=== PATIENT | female | born 1960 | race American Indian/Alaskan Native ===

== ENCOUNTER 2017-02-18 14:07 | Inpatient (IN) | payer MEDICARE ==
[2017-02-18 15:03] LABS: Basophils % (Auto) 0.9 % (0.0-1.8); Eosinophils % (Auto) 2.3 % (0.0-4.3); Mean Corpuscular HGB Conc 27 % (30-34); Platelet Count 705 K/mm3 (140-440); Red Blood Count 3.12 M/mm3 (3.65-5.03); White Blood Count 10.8 K/mm3 (4.5-11.0)
[2017-02-18 15:08] LABS: Anion Gap 18 mmol/L; BUN/Creatinine Ratio 18.57; Blood Urea Nitrogen 13 mg/dL (7-17); Calcium 8.6 mg/dL (8.4-10.2); Carbon Dioxide 22 mmol/L (22-30); Glucose 93 mg/dL (65-100); Potassium 3.5 mmol/L (3.6-5.0); Sodium 136 mmol/L (137-145)
[2017-02-18 15:09] LABS: Mean Corpuscular Hemoglobin 15 pg (28-32); Mean Corpuscular Volume 55 fl (79-97); Red Cell Distribution Width 21.3 % (13.2-15.2)
[2017-02-18 15:12] LABS: Hematocrit 17.1 % (30.3-42.9); Hemoglobin 4.7 gm/dl (10.1-14.3)
[2017-02-18] MEDS ORDERED: NACL 0.9% 500 ML 500 ML IV ONE (15:49)
[2017-02-18] MEDS ORDERED: PROTONIX IV ONE (15:55)
--- NOTE | 2017-02-18 15:57 | History and Physical Report ---
History of Present Illness Chief complaint: I feel weak History of present illness: 57 YO Female with HTN, Asthma, COPD, Diverticulosis, Anemia presents to ED for evaluation. Pt states that she has experienced multiple episodes of dark stools , lightheadedness, weakness for the past 1 month with worsening symptoms over the past week. Pt has had 8 blood transfusions in the past, with the most recent being 2 years ago. Pt denies fever, chills, CP, Palpitations, loose stools, hematemesis, unintentional weight loss, night sweats. Past History Past Medical History: anemia, COPD, hypertension Past Surgical History: Other (tubal ligation, colectomy) Social history: single. denies: smoking, alcohol abuse, prescription drug abuse Family history: no significant family history, other (reviewed) Medications and Allergies Allergies Allergy/AdvReac Type Severity Reaction Status Date / Time Iodinated Contrast Media - Allergy Unknown Verified 02/18/17 19:33 IV Dye Penicillins Allergy Unknown Verified 02/11/16 01:43 Home Medications Medication Instructions Recorded Confirmed Last Taken Type ALBUTEROL Inhaler [ProAir HFA 2 puff IH QID PRN #1 inha 02/14/16 02/18/17 Unknown Rx Inhaler] Hydrochlorothiazide [HCTZ] 25 mg PO QDAY #30 tablet 02/14/16 02/18/17 Unknown Rx Budesoni/Formotero 160-4.5(Nf) 2 puff IH BID 02/18/17 02/18/17 Unknown History [Symbicort 160-4.5 (Nf)] Review of Systems All systems: negative Constitutional: fatigue, weakness Gastrointestinal: melena Exam - Constitutional Vitals: Temp Pulse Resp BP Pulse Ox 98.2 F 100 H 20 128/71 100 02/18/17 14:19 02/18/17 14:19 02/18/17 14:19 02/18/17 14:19 02/18/17 14:19 General appearance: Present: no acute distress, well-nourished - EENT Eyes: Present: PERRL ENT: hearing intact, clear oral mucosa - Neck Neck: Present: supple, normal ROM - Respiratory Respiratory effort: normal Respiratory: bilateral: CTA - Cardiovascular Heart Sounds: Present: S1 & S2. Absent: rub, click - Extremities Extremities: pulses symmetrical, No edema Peripheral Pulses: within normal limits - Abdominal General gastrointestinal: Present: soft, non-tender, non-distended, normal bowel sounds Female genitourinary: Present: normal - Integumentary Integumentary: Present: clear, warm, dry - Musculoskeletal Musculoskeletal: gait normal, strength equal bilaterally - Psychiatric Psychiatric: appropriate mood/affect, intact judgment & insight - Neurologic Neurologic: CNII-XII intact, moves all extremities Results - Labs CBC & Chem 7: 02/18/17 14:37 02/19/17 04:00 Labs: Abnormal lab results 02/18/17 02/18/17 Range/Units 14:37 14:37 RBC 3.12 L (3.65-5.03) M/mm3 Hgb 4.7 L* (10.1-14.3) gm/dl Hct 17.1 L* (30.3-42.9) % MCV 55 L (79-97) fl MCH 15 L (28-32) pg MCHC 27 L (30-34) % RDW 21.3 H (13.2-15.2) % Plt Count 705 H (140-440) K/mm3 [place] % (Auto) 10.0 H (0.0-7.3) % [place] # 1.1 H (0.0-0.8) K/mm3 Sodium 136 L (137-145) mmol/L Potassium 3.5 L (3.6-5.0) mmol/L Assessment and Plan - Patient Problems (1) Chronic lower GI bleeding Current Visit: Yes Status: Acute Plan to address problem: Secondary to blood loss anemia: Massive transfusion protocol: Transfuse PRBC, FFP, No platelet transfusion due to reactive thrombocytosis, IV ppi, supportive care, The high probability of a clinically significant, sudden or life threatening deterioration of the [Hematologic, cardiac, gi] system(s) required my full and direct attention, intervention and personal management. The aggregate critical care time was [65] minutes. This time is in addition to time spent performing reported procedures but includes the following: [x] Data Review and interpretation [x] Patient assessment and monitoring of vital signs [x] Documentation [x] Medication orders and management (2) HTN (hypertension) Current Visit: Yes Status: Acute Qualifiers: Hypertension type: H Plan to address problem: monitor bp q shift, supportive care (3) Diverticulosis Current Visit: Yes Status: Chronic Qualifiers: Diverticulosis site: diverticulosis of large intestine Diverticulosis bleeding: diverticulosis with bleeding Qualified Code(s): K57.31 - Diverticulosis of large intestine without perforation or abscess with bleeding Plan to address problem: supportive care, GI consulted (4) Symptomatic anemia Current Visit: Yes Status: Acute Plan to address problem: PRBC transfusion, supportive care, iron therapy, (5) DVT prophylaxis Current Visit: Yes Status: Acute
--- NOTE | 2017-02-18 16:06 | Emergency Department Report ---
ED General Adult HPI - General Chief complaint: Dizziness Stated complaint: DIZZINESS Time Seen by Provider: 02/18/17 15:54 Source: patient, family Mode of arrival: Ambulatory Limitations: No Limitations - History of Present Illness Initial comments: The patient has had similar such admissions in [place]. She's been here for an year. I don't think she's had much in the way of follow-up. She's not had a recent check of her hemoglobin. She states that she sometimes sees blood in her stools last time 2 days ago. She has not been vomiting any blood or dark material. Apparently she has had a previous partial colectomy for diverticulosis. She is a poor historian. She has had "8 transfusions" in the past. Patient reported syncopal episode of some sort. She has had this in the past associated with anemia. She did not hurt herself. She does complain of shortness of breath which she had been reconciling with her asthma although she has not been wheezing. It appears that the patient has fair amount of denial and the lack of primary care for her chronic condition. In any case she has been chronically weak and has had dyspnea on exertion. She has not been recently seen by a physician. -: week(s), month(s), year(s) Consistency: intermittent Improves with: none Worsens with: other (exertion) Associated Symptoms: shortness of breath, syncope, weakness Treatments Prior to Arrival: none - Related Data Previous Rx's Medication Instructions Recorded Last Taken Type ALBUTEROL Inhaler [ProAir HFA 2 puff IH QID PRN #1 inha 02/14/16 Unknown Rx Inhaler] Budesoni/Formotero 160-4.5(Nf) 2 puff IH BID #1 inha 02/14/16 Unknown Rx [Symbicort 160-4.5 (Nf)] Ferrous Sulfate [Feosol 325 MG tab] 325 mg PO TID #90 tablet 02/14/16 Unknown Rx Hydrochlorothiazide [HCTZ] 25 mg PO QDAY #30 tablet 02/14/16 Unknown Rx Metoprolol [Lopressor TAB] 25 mg PO BID #60 tablet 02/14/16 Unknown Rx Montelukast [Singulair] 10 mg PO QHS #30 tablet 02/14/16 Unknown Rx amLODIPine [Norvasc] 10 mg PO QDAY #30 tablet 02/14/16 Unknown Rx predniSONE [Deltasone] 20 mg PO QDAY #20 tab 02/14/16 Unknown Rx Allergies Allergy/AdvReac Type Severity Reaction Status Date / Time Penicillins Allergy Unknown Verified 02/11/16 01:43 ED Review of Systems ROS: Stated complaint: DIZZINESS Other details as noted in HPI Constitutional: weakness. denies: chills, fever Eyes: denies: eye pain, eye discharge, vision change ENT: denies: ear pain, throat pain Respiratory: shortness of breath. denies: cough, wheezing Cardiovascular: denies: chest pain, palpitations Endocrine: no symptoms reported Gastrointestinal: hematochezia. denies: abdominal pain, nausea, diarrhea Genitourinary: denies: urgency, dysuria, discharge Musculoskeletal: denies: back pain, joint swelling, arthralgia Skin: denies: rash, lesions Neurological: denies: headache, weakness, paresthesias Psychiatric: denies: anxiety, depression Hematological/Lymphatic: denies: easy bleeding, easy bruising ED Past Medical Hx - Past Medical History Previous Medical History?: Yes Hx Hypertension: Yes Hx Congestive Heart Failure: No Hx Diabetes: No Hx Asthma: Yes Hx COPD: Yes Additional medical history: DIVERTICULITIS, PNEUMONIA, SYNCOPE, ANEMIA - Surgical History Past Surgical History?: Yes Additional Surgical History: GI SURGERY, TUBLA LIGATION - Social History Smoking Status: Never Smoker Substance Use Type: Alcohol, Prescribed - Medications Home Medications: Home Medications Medication Instructions Recorded Confirmed Last Taken Type ALBUTEROL Inhaler [ProAir HFA 2 puff IH QID PRN #1 inha 02/14/16 Unknown Rx Inhaler] Budesoni/Formotero 160-4.5(Nf) 2 puff IH BID #1 inha 02/14/16 Unknown Rx [Symbicort 160-4.5 (Nf)] Ferrous Sulfate [Feosol 325 MG tab] 325 mg PO TID #90 tablet 02/14/16 Unknown Rx Hydrochlorothiazide [HCTZ] 25 mg PO QDAY #30 tablet 02/14/16 Unknown Rx Metoprolol [Lopressor TAB] 25 mg PO BID #60 tablet 02/14/16 Unknown Rx Montelukast [Singulair] 10 mg PO QHS #30 tablet 02/14/16 Unknown Rx amLODIPine [Norvasc] 10 mg PO QDAY #30 tablet 02/14/16 Unknown Rx predniSONE [Deltasone] 20 mg PO QDAY #20 tab 02/14/16 Unknown Rx ED Physical Exam - General Limitations: No Limitations General appearance: alert, in no apparent distress - Head Head exam: Present: atraumatic, normocephalic - Eye Eye exam: Present: normal appearance, PERRL, EOMI. Absent: scleral icterus - ENT ENT exam: Present: mucous membranes moist - Neck Neck exam: Present: normal inspection. Absent: tenderness, meningismus - Respiratory Respiratory exam: Present: normal lung sounds bilaterally. Absent: respiratory distress - Cardiovascular Cardiovascular Exam: Present: regular rate, normal rhythm. Absent: systolic murmur, diastolic murmur, rubs, gallop - GI/Abdominal GI/Abdominal exam: Present: soft, normal bowel sounds. Absent: distended, tenderness, guarding, rebound, rigid - Extremities Exam Extremities exam: Present: normal inspection, full ROM. Absent: tenderness, calf tenderness - Back Exam Back exam: Present: normal inspection - Neurological Exam Neurological exam: Present: alert, oriented X3, CN II-XII intact. Absent: reflexes normal - Psychiatric Psychiatric exam: Present: normal affect, normal mood - Skin Skin exam: Present: warm, dry, intact, normal color. Absent: rash ED Course Vital Signs 02/18/17 14:19 Temperature 98.2 F Pulse Rate 100 H Respiratory 20 Rate Blood Pressure 128/71 O2 Sat by Pulse 100 Oximetry - Reevaluation(s) Reevaluation #1: Emergency Transfusion ordered. Protonix given. Patient referred to Dr. Springer of the hospitalist service for further care and evaluation. 02/18/17 16:08 02/18/17 16:09 ED Medical Decision Making - Lab Data Result diagrams: 02/18/17 14:37 02/18/17 14:37 Laboratory Results - last 24 hr 02/18/17 02/18/17 14:37 14:37 WBC 10.8 RBC 3.12 L Hgb 4.7 L* Hct 17.1 L* MCV 55 L MCH 15 L MCHC 27 L RDW 21.3 H Plt Count 705 H Lymph % (Auto) 21.8 [place] % (Auto) 10.0 H Eos % (Auto) 2.3 Baso % (Auto) 0.9 Lymph # 2.3 [place] # 1.1 H Eos # 0.2 Baso # 0.1 Seg Neutrophils % 65.0 Seg Neutrophils # 7.0 Sodium 136 L Potassium 3.5 L Chloride 100.0 Carbon Dioxide 22 Anion Gap 18 BUN 13 Creatinine 0.7 Estimated GFR > 60 BUN/Creatinine Ratio 18.57 Glucose 93 Calcium 8.6 Troponin T < 0.010 Critical Care Time: Yes Critical care time in (mins) excluding proc time.: 35 Critical care attestation.: If time is entered above; I have spent that time in minutes in the direct care of this critically ill patient, excluding procedure time. ED Disposition Clinical Impression: Symptomatic anemia, Chronic lower GI bleeding Syncope Qualifiers: Syncope type: unspecified Qualified Code(s): R55 - Syncope and collapse Diverticulosis Qualifiers: Diverticulosis site: diverticulosis of large intestine Diverticulosis bleeding : diverticulosis with bleeding Qualified Code(s): K57.31 - Diverticulosis of large intestine without perforation or abscess with bleeding Disposition: OP ADMITTED IP TO THIS HOSP Is pt being admited?: Yes Does the pt Need Aspirin: No (contraindicated secondary to bleeding) Condition: Stable Instructions: Syncope (ED) Referrals: PRIMARY CARE, [Primary Care Provider] - 3-5 Days Time of Disposition: 16:11
[2017-02-18 16:17] LABS: Bilirubin,Urine NEG (Negative); Blood,Urine NEG (Negative); Ketones,Urine NEG (Negative); Leukocyte Esterase,Urine MOD (Negative); Mucus,Urine 2+ /HPF; Nitrite,Urine NEG (Negative); Protein,Urine <15 mg/dL mg/dL (Negative); Urobilinogen,Urine < 2.0 mg/dL (<2.0)
--- NOTE | 2017-02-18 17:14 | Admit Criteria Form ---
Admission Criteria Documentation: HEMATOLOGY GRG Clinical Indications for Admission to Inpatient Care (Place 'X' for any and all applicable criteria): Hospital admission is needed for appropriate care of the patient because of ANY ONE of the following: [ X]I. Severe anemia indicated by ANY ONE of the following (1)(2) [ ]a) Altered mental status [X ]b) Syncope [ ]c) Other findings suggesting inadequate perfusion [ ]d) Chest pain [ ]e) Exertional dyspnea [ ]f) Treatment with transfusion or volume replacement is ineffective at resolving ANY ONE of the following [A]: [ ]i) Tachycardia for age [ ]ii) Orthostatic vital sign changes as indicated by ANY ONE of the following (3) [ ]1) Fall in SBP of 20 mm Hg or more 1 to 3 minutes after patient sits or stands from recumbent position [ ]2) Fall in DBP of 10 mm Hg or more 1 to 3 minutes after patient sits or stands from recumbent position [ ]II. High-risk febrile neutropenia [B] as indicated by ANY ONE of the following(4)(5) [ ]a) Hemodynamic instability [ ]b) Hypoxemia [ ]c) Tachypnea [ ]d) Altered mental status [ ]e) New onset abdominal pain [ ]f) New onset vomiting or diarrhea [ ]g) Pneumonia [ ]h) Profound neutropenia [C] anticipated to extend for more than 7 days [ ]i) Oral or gastrointestinal mucositis that interferes with swallowing or causes severe diarrhea [ ]j) Evidence of significant focal infection (eg, cellulitis, central line or catheter infection, perirectal abscess) [ ]k) Leukemia or lymphoma induction therapy [ ]l) Bone marrow transplant patient [ ]m) Renal insufficiency (eg, GFR of less than 30 mL/min/1.73m2 (0.5 mL/sec/1.73m2) [ ]n) Severe liver dysfunction (transaminase levels greater than 5 times normal) [ ]o) Platelet count less than 50,000/mm3 (50 x109/L)(6) [ ]p) [employer] Association for Supportive Care in Cancer (MASCC) Risk Index score of < 21 [D] [ ]III. High-risk low platelet count as indicated by ANY ONE of the following(8) (9) [ ]a) Severe or life-threatening bleeding (eg, intracranial, major gastrointestinal, or extensive mucosal bleeding), with any reduced platelet count [ ]b) Platelet count less than 20,000/mm3 (20 x109/L) with any active bleeding [ ]c) Platelet count less than 10,000/mm3 (10 x109/L) with minor purpura or petechiae [ ]d) Platelet count less than 5000/mm3 (5 x109/L) [ ]e) Low platelet count with hemolytic anemia [ ]IV.Active hemolysis with high-risk findings, including ANY ONE of the following(2)(10)(11) [ ]a) Hematocrit less than 25% (0.25) [ ]b) Rapidly progressing anemia [ ]c) Thrombocytopenia(12)(13) [ ]d) Evidence of thrombosis or new renal insufficiency [ ]V. Bleeding disorder with high-risk features (eg, hemophilia, coagulopathy) as indicated by ANY ONE of the following (2)(14)(15) [ ]a) Central nervous system bleeding [ ]b) Retroperitoneal bleeding [ ]c) Retropharyngeal bleeding [ ]d) Gastrointestinal bleeding (22) [ ]e) Purpura [ ]f) Disseminated intravascular coagulation(23) [ ]g) Major trauma [ ]h) Deep laceration [ ]i) Head trauma [ ]j) Any trauma with internal hematoma (eg, retroperitoneal, ocular) [ ]k) Failed outpatient management [ ]. Severe over-anticoagulation or high-risk situation as indicated by ANY ONE of the following(24)(25) [ ]a) Active bleeding [ ]b) International normalized ratio 5 or greater and rapid reversal needed [ ]c) International normalized ratio 9 or greater [ ]VII. Congenital immunodeficiency states with severe morbidity as indicated by ANY ONE of the following(26)(27) [ ]a) Severe infection [ ]b) Bone marrow transplant needed (Also use Medical Oncology GRG) [ ]VIII. Hyperviscosity syndrome with high-risk indicators indicated by ANY ONE of the following (2)(28)(29)(30)(31) [ ]a) Polycythemia vera with hematocrit greater than 60% (0.60) [ ]b) Elevated platelet count associated with thrombosis, bleeding, or life-threatening organ dysfunction [ ]c) Severe signs or symptoms from elevated red cell, white cell, or protein levels, including ANY ONE of the following: [ ]i) Mental status change [ ]ii) Dyspnea [ ]iii) Chest x-ray infiltrate [ ]iv) Visual changes [ ]v) Retinal abnormalities [ ]vi) Neuromuscular symptoms [ ]vii) Suspected ischemia or thrombosis [ ]viii) Bleeding [ ]IX. Methemoglobinemia greater than 15% (0.15) or severe symptoms persist after emergency treatment (32)(33) [ ]X. Spleen trauma with blood loss or other need for acute (medical) treatment (34) [ ]XI. Hematology condition and ALL of the following: [ ]a) Symptom or finding for which emergency and observation care have failed or are not considered appropriate (Also use General Criteria: Observation Care as appropriate) [ ]b) Presence of ANY ONE of the following: [ ]i) A General Admission Criteria [ ]ii) A Pediatric General Admission Criteria The original [facility] [employer] content created by [facility] has been revised. The portions of the content which have been revised are identified through the use of italic text or in bold, and [facility] has neither reviewed nor approved the modified material. All other unmodified content is copyright [facility]. Please see references footnoted in the original [facility] edition 2016 Admission Criteria Met: Yes
[2017-02-18] MEDS ORDERED: DUONEB 0.5 MG-3 MG/3 ML SOLN IH PRN (17:31)
[2017-02-18] MEDS ORDERED: DULCOLAX PR PRN (17:31)
[2017-02-18] MEDS ORDERED: ALUM-MAG HYDROX-SIMETH 200-200-20MG/5ML PO PRN (17:31)
[2017-02-18] MEDS ORDERED: MILK OF MAGNESIA PO PRN (17:31)
[2017-02-18] MEDS ORDERED: NACL 0.9% 500 ML 500 ML IV NR ×2 (17:47→17:52)
[2017-02-18] MEDS ORDERED: PROVENTIL IH PRN (18:10)
[2017-02-18 18:54] LABS: INR 0.99 (0.87-1.13)
[2017-02-18] MEDS: PROTONIX 80 MG in NACL 0.9% 100 ML IV SCH (19:10)
[2017-02-18] MEDS ORDERED: NON-FORMULARY (Budesoni/Formotero 160-4.5(Nf) 2 PUFF) IH SCH (22:00)
[2017-02-18] MEDS: PULMICORT IH SCH (23:31)
[2017-02-18] MEDS: BROVANA NEBU IH SCH (23:32)
[2017-02-19 04:56] LABS: Anion Gap 17 mmol/L; Blood Urea Nitrogen 12 mg/dL (7-17); Calcium 8.3 mg/dL (8.4-10.2); Carbon Dioxide 24 mmol/L (22-30); Chloride 102.2 mmol/L (98-107); Glucose 99 mg/dL (65-100); Potassium 3.7 mmol/L (3.6-5.0); Sodium 139 mmol/L (137-145)
[2017-02-19] MEDS: PROTONIX 80 MG in NACL 0.9% 100 ML IV SCH ×2 (05:38→16:33)
[2017-02-19 08:03] LABS: Hemoglobin 9.6 gm/dl (10.1-14.3)
--- NOTE | 2017-02-19 08:32 | Progress Note ---
Assessment and Plan Assessment and plan: severe anemia. Hgb was 4.7 on admission, now 9.6 after 4 Units PRBC. Will obtain stool occult blood. Her hemoglobin was 7.7 one week ago while she was here. She states she has history of chronic anemia,etiology unknown. She has history of diverticulosis s/p partial colectomy. Syncope due to severe anemia COPD stable. DVT prophylaxis. SCDs only. History Interval history: Presented with dizziness, syncope, Denies blood in stool Hospitalist Physical - Physical exam Narrative exam: Gen: Not in acute distress, HEENT: Normocephalic, atraumatic Neck: supple, no JVD Lungs: Clear to auscultation bilaterally , no crackles or wheeze Heart S1-S2 regular, no murmurs, rubs or gallop, Abdomen: soft, non tender, non distended, normal bowel sounds Ext: No edema, No clubbing or cyanosis Neuro: Awake.alert, oriented x 3, no focal neuro signs, - Constitutional Vitals: Temp Pulse Resp BP Pulse Ox 98.8 F 82 17 145/110 99 02/19/17 03:30 02/19/17 05:30 02/19/17 07:10 02/19/17 07:10 02/19/17 03:30 General appearance: Present: no acute distress, well-nourished Results - Labs CBC & Chem 7: 02/19/17 07:50 02/19/17 04:00 Labs: Laboratory Last Values WBC 10.8 K/mm3 (4.5-11.0) 02/18/17 14:37 RBC 3.12 M/mm3 (3.65-5.03) L 02/18/17 14:37 Hgb 9.6 gm/dl (10.1-14.3) L D 02/19/17 07:50 Hct 31.0 % (30.3-42.9) D 02/19/17 07:50 MCV 55 fl (79-97) L 02/18/17 14:37 MCH 15 pg (28-32) L 02/18/17 14:37 MCHC 27 % (30-34) L 02/18/17 14:37 RDW 21.3 % (13.2-15.2) H 02/18/17 14:37 Plt Count 705 K/mm3 (140-440) H 02/18/17 14:37 Lymph % (Auto) 21.8 % (13.4-35.0) 02/18/17 14:37 [place] % (Auto) 10.0 % (0.0-7.3) H 02/18/17 14:37 Eos % (Auto) 2.3 % (0.0-4.3) 02/18/17 14:37 Baso % (Auto) 0.9 % (0.0-1.8) 02/18/17 14:37 Lymph # 2.3 K/mm3 (1.2-5.4) 02/18/17 14:37 [place] # 1.1 K/mm3 (0.0-0.8) H 02/18/17 14:37 Eos # 0.2 K/mm3 (0.0-0.4) 02/18/17 14:37 Baso # 0.1 K/mm3 (0.0-0.1) 02/18/17 14:37 Seg Neutrophils % 65.0 % (40.0-70.0) 02/18/17 14:37 Seg Neutrophils # 7.0 K/mm3 (1.8-7.7) 02/18/17 14:37 PT 13.0 Sec. (12.2-14.9) 02/18/17 18:13 INR 0.99 (0.87-1.13) 02/18/17 18:13 Sodium 139 mmol/L (137-145) 02/19/17 04:00 Potassium 3.7 mmol/L (3.6-5.0) 02/19/17 04:00 Chloride 102.2 mmol/L (98-107) 02/19/17 04:00 Carbon Dioxide 24 mmol/L (22-30) 02/19/17 04:00 Anion Gap 17 mmol/L 02/19/17 04:00 BUN 12 mg/dL (7-17) 02/19/17 04:00 Creatinine 0.8 mg/dL (0.7-1.2) 02/19/17 04:00 Estimated GFR > 60 ml/min 02/19/17 04:00 BUN/Creatinine Ratio 15.00 % 02/19/17 04:00 Glucose 99 mg/dL (65-100) 02/19/17 04:00 Calcium 8.3 mg/dL (8.4-10.2) L 02/19/17 04:00 Troponin T < 0.010 ng/mL (0.00-0.029) 02/19/17 04:00 Urine Color Yellow (Yellow) 02/18/17 14:33 Urine Turbidity Clear (Clear) 02/18/17 14:33 Urine pH 5.0 (5.0-7.0) 02/18/17 14:33 Ur Specific [place] 1.018 (1.003-1.030) 02/18/17 14:33 Urine Protein <15 mg/dl mg/dL (Negative) 02/18/17 14:33 Urine Glucose (UA) Neg mg/dL (Negative) 02/18/17 14:33 Urine Ketones Neg mg/dL (Negative) 02/18/17 14:33 Urine Blood Neg (Negative) 02/18/17 14:33 Urine Nitrite Neg (Negative) 02/18/17 14:33 Urine Bilirubin Neg (Negative) 02/18/17 14:33 Urine Urobilinogen < 2.0 mg/dL (<2.0) 02/18/17 14:33 Ur Leukocyte Esterase Mod (Negative) 02/18/17 14:33 Urine WBC (Auto) 2.0 /HPF (0.0-6.0) 02/18/17 14:33 Urine RBC (Auto) 3.0 /HPF (0.0-6.0) 02/18/17 14:33 U Epithel Cells (Auto) 4.0 /HPF (0-13.0) 02/18/17 14:33 Urine Mucus 2+ /HPF 02/18/17 14:33 Blood Type B POSITIVE 02/18/17 17:08 Antibody Screen TNR 02/18/17 17:08 LASHELL Antibody Screen Negative 02/18/17 17:08 Crossmatch See Detail 02/18/17 17:08
--- NOTE | 2017-02-19 09:36 | XRay Report ---
AP CHEST :02/18/17 CLINICAL: Difficulty breathing. COMPARISON:02/11/16 FINDINGS: Normal heart and pulmonary vasculature. The lungs are normally expanded and clear. The bones and soft tissues are normal. IMPRESSION: Normal.
[2017-02-19] MEDS: BROVANA NEBU IH SCH ×2 (09:46→20:53)
[2017-02-19] MEDS: PULMICORT IH SCH ×2 (09:46→20:53)
[2017-02-19] MEDS ORDERED: HCTZ PO SCH (10:00)
[2017-02-19 17:15] LABS: Hematocrit 30.6 % (30.3-42.9); Hemoglobin 9.6 gm/dl (10.1-14.3)
--- NOTE | 2017-02-19 18:13 | Discharge Summary ---
Providers - Providers Date of Admission: 02/18/17 18:14 Date of discharge: 02/19/17 Attending physician: JENNYFER SHEARER 02/19/17 07:28 Consult to Physician [CONS] Routine Consulting Provider: BALAJI PINEDA Reason For Exam: gi bleed Place consult to:: gi bleed/DR. PINEDA Notified:: ANSWERING SERVICES Phone number called:: [phone] Was contact made?: Yes If yes, spoke with:: NELY Time called:: 09:58 Comment:: PAT NOTIFIED Primary care physician: POWER [employer]ANSFORMER REPAIRER Hospitalization Condition: Good Hospital course: Patient is 57 yo presented with gen weakness. In ED, hemoglobin was 4.7. She was admitted transfused 4 Units PRBC. GI was consulted and she was evaluated by Dr. Pineda. Stool occult blood was negative. GI Physician recommended may go home and follow as outpatient for endoscopy as outpatient so was discharged home. Her hemoglobin was 9.4 on discharge. Disposition: DISCHARGED TO HOME OR SELFCARE - Discharge Diagnoses (1) Anemia Status: Acute Qualifiers: Anemia type: A Iron deficiency anemia type: I Vitamin B12 deficiency anemia type: V Folate deficiency anemia type: F Bone marrow failure anemia type: B Hemolytic anemia type: H Other causes of anemia: O (2) COPD (chronic obstructive pulmonary disease) Status: Chronic Qualifiers: COPD type: C Chronic bronchitis type: C Emphysema type: E (3) Symptomatic anemia Status: Chronic (4) Iron deficiency anemia Status: Acute Qualifiers: Iron deficiency anemia type: other iron deficiency Qualified Code(s): D50.8 - Other iron deficiency anemias Core Measure Documentation - Palliative Care Palliative Care/ Comfort Measures: Not Applicable - Core Measures Any of the following diagnoses?: none Exam - Physical Exam Narrative exam: Gen: Not in acute distress, HEENT: Normocephalic, atraumatic Neck: supple, no JVD Lungs: Clear to auscultation bilaterally , no crackles or wheeze Heart S1-S2 regular, no murmurs, rubs or gallop, Abdomen: soft, non tender, non distended, normal bowel sounds Ext: No edema, No clubbing or cyanosis Neuro: Awake.alert, oriented x 3, no focal neuro signs, - Constitutional Vitals: Temp Pulse Resp BP Pulse Ox 98.7 F 84 20 144/65 96 02/19/17 16:53 04/30/17 16:53 02/19/17 16:53 02/19/17 16:53 02/19/17 16:53 General appearance: Present: no acute distress - Neck Neck: Present: supple - Respiratory Respiratory: bilateral: CTA Plan Activity: no restrictions Diet: low fat, low cholesterol, low salt Additional Instructions: 1.Follow up with PCP in 1 week. 2.Follow up with Dr. Pineda in 2 weeks Follow up with: PRIMARY CARE, [Primary Care Provider] - 3-5 Days Prescriptions: Ascorbic Acid [Vitamin C] 500 mg PO QDAY #30 tablet Docusate Sodium [Colace] 100 mg PO BID #60 capsule Famotidine [Pepcid] 20 mg PO BID #30 tablet Ferrous Sulfate [Feosol 325 MG tab] 325 mg PO BID #60 tablet
--- NOTE | 2017-02-19 18:48 | Consultation ---
History of Present Illness - Reason for Consult Consult date: 02/19/17 - History of Present Illness see dictated note Past History Past Medical History: anemia, COPD, hypertension Past Surgical History: Other (tubal ligation, colectomy) Social history: single. denies: smoking, alcohol abuse, prescription drug abuse Family history: no significant family history, other (reviewed) Medications and Allergies Allergies Allergy/AdvReac Type Severity Reaction Status Date / Time Iodinated Contrast Media - Allergy Unknown Verified 02/18/17 19:33 IV Dye Penicillins Allergy Unknown Verified 02/11/16 01:43 Home Medications Medication Instructions Recorded Confirmed Last Taken Type ALBUTEROL Inhaler [ProAir HFA 2 puff IH QID PRN #1 inha 02/14/16 02/18/17 Unknown Rx Inhaler] Hydrochlorothiazide [HCTZ] 25 mg PO QDAY #30 tablet 02/14/16 02/18/17 Unknown Rx Budesoni/Formotero 160-4.5(Nf) 2 puff IH BID 02/18/17 02/18/17 Unknown History [Symbicort 160-4.5 (Nf)] Ascorbic Acid [Vitamin C] 500 mg PO QDAY #30 tablet 02/19/17 Unknown Rx Docusate Sodium [Colace] 100 mg PO BID #60 capsule 02/19/17 Unknown Rx Famotidine [Pepcid] 20 mg PO BID #30 tablet 02/19/17 Unknown Rx Ferrous Sulfate [Feosol 325 MG tab] 325 mg PO BID #60 tablet 02/19/17 Unknown Rx Active Meds: Active Medications Al Hydrox/Mg Hydrox/Simethicone (Alum-Mag Hydrox-Simeth 963-179-75nw/5ml) 30 ml PO Q4H PRN PRN Reason: Indigestion Albuterol (Proventil) 2.5 mg IH Q6HRT PRN PRN Reason: Wheezing Arformoterol Tartrate (Brovana Nebu) 15 mcg IH Q12HRT [facility] Last Admin: 02/19/17 09:46 Dose: 15 mcg Bisacodyl (Dulcolax) 10 mg HI QDAY PRN PRN Reason: constipation unrelieved by MOM Budesonide (Pulmicort) 0.5 mg IH Q12HRT [facility] Last Admin: 02/19/17 09:46 Dose: 0.5 mg Hydrochlorothiazide (Hctz) 25 mg PO QDAY [facility] Last Admin: 02/19/17 12:35 Dose: 25 mg Pantoprazole Sodium 80 mg/ (Sodium Chloride) 100 mls @ 10 mls/hr IV Q10H [facility] PRN Reason: 8 MG/HR Last Admin: 02/19/17 16:33 Dose: 8 mg/hr, 10 mls/hr Magnesium Hydroxide (Milk Of Magnesia) 30 ml PO Q4H PRN PRN Reason: Constipation Last Admin: 02/19/17 12:34 Dose: 30 ml Exam - Constitutional Vitals: Temp Pulse Resp BP Pulse Ox 98.7 F 84 20 144/65 96 02/19/17 16:53 02/19/17 16:53 02/19/17 16:53 02/19/17 16:53 02/19/17 16:53 Results - Labs CBC & Chem 7: 02/19/17 16:33 02/19/17 04:00 Labs: Abnormal lab results 02/19/17 02/19/17 02/19/17 Range/Units 04:00 07:50 16:33 Hgb 9.6 L D 9.6 L (10.1-14.3) gm/dl Calcium 8.3 L (8.4-10.2) mg/dL
[2017-02-19 20:16] VITALS: BP 160/72
--- NOTE | 2017-02-19 20:22 | Consultation ---
REASON FOR CONSULTATION: Anemia. REFERRING PHYSICIAN: Rico Lara MD HISTORY: The patient is a 57-year-old woman who is on disability due to COPD and who presented with lightheadedness and weakness, progressive over the last month. She said she has intermittent dark stools. She was found to have hemoglobin of 4.7 with an MCV of 55 and was admitted and transfused. Of note, the patient had hemoglobin of 7.7 in January 2016, with an MCV of 66 at that time and she has not been transfused in the interim. She has a longstanding history of iron deficiency anemia and since 1987 or so. She was in [place] most of that time and moved to [place] a year ago. She states that in [place], she was transfused approximately 8 times. She states she had a colonoscopies there and did have partial colon resection for diverticulitis. She denies any blanca known GI bleeding. She says she has never been found to have GI blood loss. She has taken oral iron in the past without relief. She notes that she has never had an upper endoscopy. Her last colonoscopy was in 2014. She denies abdominal pain, nausea, vomiting or chest pain. She has no shortness of breath. Bowel movements occurred twice a week without any change. Of note, she does take an 81 mg aspirin daily because she has hypertension. She has no menstrual cycle for the last 7 years. She denies weight loss. Of note, she used to drink a fifth of barrie daily last year, but she states she has cut down to one bottle of [email or web address] brown liquor per month. ALLERGIES: She is allergic to PENICILLIN and IODINATED CONTRAST. MEDICATIONS: At home, she is on hydrochlorothiazide, Symbicort, albuterol, ferrous sulfate, Pepcid, Colace, and vitamin C. PAST MEDICAL HISTORY: She has a history of, 1. Hypertension. 2. COPD. 3. Diverticulosis - status post partial colectomy in 02/12/2014. 4. Tubal ligation. FAMILY HISTORY: Noncontributory. SOCIAL HISTORY: She lives with her son and has never smoked. Alcohol as noted above. REVIEW OF SYSTEMS: Otherwise noncontributory. PHYSICAL EXAMINATION: GENERAL: This is a pleasant, middle-aged appearing black female lying in bed in no apparent distress. VITAL SIGNS: Temperature 98.7, pulse 84, blood pressure 144/65. She is anicteric. HEENT: Pupils are round and reactive. Oropharynx is clear. LUNGS: Clear bilateral to auscultation. CARDIAC: Examination is regular with no extra heart sounds. ABDOMEN: Soft with good bowel sounds and no organomegaly or tenderness to deep palpation. RECTAL: Deferred, but stool was occult blood negative from the lab. EXTREMITIES: Reveal no edema. LABORATORY DATA: White count is 10.8, hemoglobin is 9.6 now after being transfused, up from 4.7. Hematocrit is now 30.6, MCV of 55, platelet count of 705,000. Protime is 13 with an INR of 0.99. Sodium is 139, potassium 3.7, chloride 102, bicarbonate 24, BUN 12, creatinine 0.8, glucose 99. She was documented to have iron deficiency in 01/2016. IMPRESSION: Iron deficiency anemia - etiology unclear. It does not appear that the patient has a history consistent with gastrointestinal blood loss causing the anemia. She may well have a malabsorptive process and be lacking in the iron transporter in her intestinal lumen. She also could have celiac disease, though that is less likely. RECOMMENDATIONS: 1. Discharge to home on oral iron and vitamin C. 2. Follow up as outpatient for upper endoscopy. 3. If that is unrevealing, and stool is negative for occult blood, IV iron infusion periodically may be most appropriate. PLAN: The patient is to try and give me colonoscopy report from 2014, and if she cannot, we will consider repeating it. JOB# [id number] HRC/NTS
[2017-02-20 01:04] LABS: Hematocrit 30.3 % (30.3-42.9); Hemoglobin 9.4 gm/dl (10.1-14.3)
== END 2017-02-20 07:49 | disposition home or self-care (01) | DRG 811 ==
LOC: ED 14:07 → CC1 18:14 → 3A 02-19 08:44
PROVIDERS: ADMIT Internal Medicine; ATTEND Internal Medicine
PROC: 30233N1 Transfusion of Nonautologous Red Blood Cells into Peripheral Vein, Percutaneous Approach (ICD-10-PCS; principal; 2017-02-18)
PROC: 30233L1 Transfusion of Nonautologous Fresh Plasma into Peripheral Vein, Percutaneous Approach (ICD-10-PCS; 2017-02-18)
PROC: 30233K1 Transfusion of Nonautologous Frozen Plasma into Peripheral Vein, Percutaneous Approach (ICD-10-PCS; 2017-02-18)
DX: D50.0 Iron deficiency anemia secondary to blood loss (chronic) (principal); K57.31 Diverticulosis of large intestine without perforation or abscess with bleeding; I10 Essential (primary) hypertension; R55 Syncope and collapse; J44.9 Chronic obstructive pulmonary disease, unspecified; Z98.51 Tubal ligation status; Z88.0 Allergy status to penicillin; Z91.041 Radiographic dye allergy status
CPT/HCPCS: 36415; 36430; 71010; 80048; 81001; 82270; 84484; 85014; 85018; 85025; 85610; 86850; 86900; 86901; 86920; 93005; 93010; 94640; 96361; 96374; C9113; J7040; P9016; P9017